=== PATIENT | male | born 1970 | race Caucasian/White ===

== ENCOUNTER → 2020-10-22 08:51 | Outpatient (CLI) | payer OTHER, SELFPAY ==
[2015-03-23 12:14] VITALS: BMI 23.5
[2020-10-25 20:12] LABS: Fats, Neutral Normal (.); Fats, Total Normal (.)
== END ==
PROVIDERS: PCP Family Medicine; Referring Provider Internal Medicine Gastroenterology; Visit Provider Internal Medicine Gastroenterology
DX: R19.7 Diarrhea, unspecified (principal); R63.4 Abnormal weight loss
CPT/HCPCS: 82705

== ENCOUNTER → 2024-10-08 | Outpatient (CLI) | payer OTHER, SELFPAY ==
[2024-10-08 10:39] LABS: Erythrocyte Sedimentation Rate < 1 mm/hr (0-20)
[2024-10-08 10:41] LABS: Absolute Lymphocyte Count 2.68 X10^3/uL (0.83-4.51); Absolute Neutrophil Count 5.7 X10^3/uL (2.0-7.7); Basophil# 0.05 X10^3/uL; Basophil% 0.5 % (0-1); Eosinophil# 0.38 X10^3/uL; Eosinophils% 4.1 % (0-5); Hemoglobin 15.4 g/dL (13.0-16.5); Lymphocyte # 2.68 X10^3/ul (0.83-4.51); Lymphocyte % 28.8 % (19-41); Mean Corp Hgb Conc 33.5 g/dL (32-36); Mean Corpuscular Hgb 31.8 pg (27.0-32.0); Mean Platelet Vol. 9.4 fl (6.2-12.0); Monocyte# 0.48 X10^3/uL; Monocyte% 5.2 % (0-10); NRBC Flagged by Analyzer 0 % (0-5); Neutrophil # 5.67 X10^3/uL (2.7-7.7); Neutrophil % 61.1 % (47-70); Platelet Count 227 K/mm3 (150-450); RBC Distribution Width CV 12.7 % (11.6-14.6); RBC Distribution Width SD 44.6 fl (35.1-43.9); Red Blood Count 4.84 M/mm3 (4.6-6.2); White Blood Count 9.3 K/mm3 (4.4-11.0)
[2024-10-08 10:49] LABS: ALB/GLOB Ratio 1.2 RATIO (0.9-2.4); AST(SGOT) 14 U/L (15-37); Alanine Aminotransfer ALT/SGPT 41 U/L (16-61); Albumin, Serum 3.8 g/dL (3.2-5.0); Alkaline Phosphatase 74 U/L (45-117); Anion Gap 3 (5-15); BUN 14 mg/dL (7-18); BUN/Creat Ratio 14.1 RATIO (10-20); CRP < 2.90 mg/L (0.0-3.0); Calcium,Total 8.9 mg/dL (8.5-10.1); Chloride 106 mmol/L (98-107); Creatinine, Serum 0.99 mg/dL (0.70-1.30); EST Glomerular Filtration Rate 83 mL/min (>60); Est Glom Filt Rate - Afr Amer 101 mL/min (>60); Globulin 3.2 g/dL (2.2-4.2); Glucose 92 mg/dL (74-106); Lipase 54 U/L (13-75); Potassium 4.1 mmol/L (3.5-5.1); Sodium Level 139 mmol/L (136-145)
== END | disposition home or self-care (01) ==
PROVIDERS: PCP Family Medicine; Referring Provider Student in an Organized Health Care Education/Training Program; Visit Provider Student in an Organized Health Care Education/Training Program
DX: R10.9 Unspecified abdominal pain (principal)
CPT/HCPCS: 36415; 80053; 83690; 85025; 85652; 86140

== ENCOUNTER → 2024-10-11 | Outpatient (CLI) | payer OTHER, SELFPAY ==
[2024-10-13 15:08] LABS: Pancreatic Elastase, Fecal > 800 (>200)
[2024-10-14 15:08] LABS: Calprotectin, Stool 13 ug/g (0-120)
== END | disposition home or self-care (01) ==
LOC: LABSPEC 09:37
PROVIDERS: PCP Family Medicine; Referring Provider Student in an Organized Health Care Education/Training Program; Visit Provider Student in an Organized Health Care Education/Training Program
DX: R10.9 Unspecified abdominal pain (principal); K58.9 Irritable bowel syndrome, unspecified
CPT/HCPCS: 82653; 83630; 83993; 87177; 87209; 87329; 87493

== ENCOUNTER → 2024-11-12 | Outpatient (CLI) | payer OTHER, SELFPAY ==
--- NOTE | 2024-11-12 13:11 | MRI_ITS ---
EXAM: MR ABDOMEN WITHOUT INTRAVENOUS CONTRAST, MRCP PROTOCOL CLINICAL INDICATION: dilated CBD TECHNIQUE: Multiplanar and multisequence MR images of the abdomen without intravenous contrast obtained with MRCP sequence. Three-dimensional post-processing reconstructions were performed. COMPARISON: No relevant prior studies available. FINDINGS: LOWER THORAX: Normal. No pleural effusion. LIVER: Normal. Normal morphology. GALLBLADDER AND BILE DUCTS: Susceptibility artifacts at the mary hepatis related to cholecystectomy clips. Common bile duct measures 7 mm in diameter which is normal for postcholecystectomy patient. PANCREAS: Normal. No focal cystic mass. No pancreatic duct dilation. SPLEEN: Normal. Non-enlarged. ADRENALS: Normal. No nodules. KIDNEYS AND URETERS: Normal. Normal renal size and position. No hydronephrosis. INTRAPERITONEAL SPACE: Normal. No ascites or other fluid collection. VASCULATURE: Normal. Abdominal aorta is non-dilated. LYMPH NODES: No enlarged lymph nodes. MRI/MRCP Abdomen without Contrast IMPRESSION: Normal MRCP for postcholecystectomy patient. Electronically Signed: Austin Mcbride MD at 9:06 EST ,
== END | disposition home or self-care (01) ==
PROVIDERS: PCP Family Medicine; Referring Provider Student in an Organized Health Care Education/Training Program; Visit Provider Student in an Organized Health Care Education/Training Program
DX: K83.8 Other specified diseases of biliary tract (principal); R10.9 Unspecified abdominal pain
CPT/HCPCS: 74181

== ENCOUNTER 2024-12-05 11:21 | Day surgery (SDC) | payer OTHER, SELFPAY ==
[2024-12-05] VITALS (9 sets, daily range): BP systolic 97–122; BP diastolic 72–98; PULSE 61–67; RESP 16; TEMP 36.3–36.9; O2SAT 92–100; BMI 21.7
--- NOTE | 2024-12-05 11:53 | HP.PCM_ITS ---
HPI - General General Date of Admission: 12/05/24 Date of Service: 12/05/24 Chief Complaint: diarrhea HPI Narrative Chief Complaint: RUQ pain, diarrhea Details: QUANG SOLOMON, is a 54 M who presents to the office today for establishment with [facility]. Pt has a long hx of GI issues starting in 2000 after cholecystectomy. He has undergone ERCP for choledocholithiasis in 2013. The past couple of months he has started having episodes of severe RUQ pain followed by multiple episodes of loose sticky stool. He also has had daily nausea w/ no vomiting. If he does vomit it will go on for a long time. He has been unable to work due to these symptoms. He recently presented to [facility] for these symptoms and they did not do much for him. He had a CT abdomen/pelvis which was normal. HE does not remember his last scopes but it was at least 5 years ago. [facility] Medical History Wears glasses Depression Anxiety Arthritis Back pain Injury of back Migraine headache Injury of head and neck History of ulceration History of GI bleed History of IBS History of diverticulitis Gastric reflux Former smoker Home Medications ?Medication ?Instructions ?Recorded ?Last Taken ?Type dicyclomine 20 mg tablet 20 mg PO BID PRN abdominal pain 12/03/24 Unknown History Allergy/AdvReac Type Severity Reaction Status Date / Time hydromorphone HCl (From Allergy Other Verified 12/05/24 11:42 Dilaudid) codeine AdvReac Vomiting Verified 12/05/24 11:42 Surgical History Hx of facial fracture repair Hx of arthroscopy of shoulder History of ERCP History of ERCP History of laparoscopic cholecystectomy Social History Smoking Status: Former smoker Electronic Cigarette Use: not used alcohol intake: former substance use type: marijuana ROS Constitutional Constitutional: Denies fatigue, fever(s), poor appetite, weight gain or weight loss Gastrointestinal Gastrointestinal: Denies belching, bloating, change in bowel habits, change in stool character, chewing difficulty, coffee ground emesis, constipation, cramping, diarrhea, dyspepsia, dysphagia, early satiety, excessive flatus, fecal incontinence, heartburn, hematemesis, hematochezia, hemorrhoids, loose stools, melena, nausea, odynophagia, rectal bleeding, tenesmus, vomiting or weight changes Vital Signs Vital Signs Vital Signs: 12/05/24 11:44 12/05/24 11:44 Temperature 98.5 F Temperature Source Temporal Pulse Rate 67 Respiratory Rate 16 Respiratory Pattern Normal Blood Pressure 122/98 H Blood Pressure Mean 106 Blood Pressure Source Monitor Blood Pressure Position Semi-Fowlers Blood Pressure Location Right Arm Pulse Ox 100 Oxygen Delivery Method Room Air Weight Weight: 134 lb 7.712 oz Body Mass Index (BMI) 21.7 Physical Exam Const alert, oriented x3, no apparent distress and healthy appearing General Appearance: cooperative GI normal to inspection, nondistended, normoactive bowel sounds, soft to palpation, non-tender and non-distended Percussion: normal to percussion Rectal Exam: deferred Assessment & Plan Assessment/Plan (1) Abdominal pain: (2) Diarrhea: PLAN: Plan Chief Complaint: RUQ pain, diarrhea Details: QUANG SOLOMON, is a 54 M who presents to the office today for establishment with [facility]. Pt has a long hx of GI issues starting in 2000 after cholecystectomy. He has undergone ERCP for choledocholithiasis in 2013. The past couple of months he has started having episodes of severe RUQ pain followed by multiple episodes of loose sticky stool. He also has had daily nausea w/ no vomiting. If he does vomit it will go on for a long time. He has been unable to work due to these symptoms. He recently presented to [facility] for these symptoms and they did not do much for him. He had a CT abdomen/pelvis which was normal. HE does not remember his last scopes but it was at least [address] abdomen/pelvis 09.05.24 w/o pertinent abnormalities US gallbladder 09.05.24; CBD dilation 7.1 mm ROS Const Constitutional: Positive for fatigue, headache(s) and weight change; No fever(s) ENT ENT: Positive for headache(s); No difficulty swallowing Gastro GI: Positive for abdominal pain, bloating, change in bowel habits, constipation, diarrhea, heartburn, excessive flatus and nausea/dyspepsia; No belching, change in stool character, coffee ground emesis, cramping, difficulty swallowing, feeling full early, incontinent of stools, Vomiting blood/hematemesis, Blood in stool, loose stools, Black,tarry stools, pain with swallowing, vomiting or other Musc Musculoskeletal: Positive for joint pain, back pain, muscle cramps, muscle weakness, stiffness and restless legs Skin Skin: Positive for dry skin; No yellowing of the eye or itchy eyes GI Assessment and Plan Assessment and Plan (1) Abdominal pain: Status: Acute (2) Common bile duct dilatation: Status: Acute Plan: This is a 54 yo male pt who is here today for RUQ pain, n/v and loose stools. He is s/p cholecystectomy 2000 and ERCP 2013. He has episodes of RUQ pain that sounds like SOD. I will order blood work with CBC, CMP, lipase, CRP and ESR. I will also order stool testing for EPI, inflammation or infection. He will undergo both upper and lower endoscopy as last one was over 5 years ago. He will also have an MRCP to look at the bile ducts. In the meantime he will take dicyclomine for abdominal cramping 20 mg BID PRN. -Blood work and stool tests -MRCP -EGD and colonoscopy -Dicyclomine 20 mg BID PRN - Orders: Orders Ova and Parasites 8623 Today K58.9 - Irritable bowel syndrome, unspecified, R10.9 - Unspecified abdominal pain Pancreatic Elastase, Fecal Today R10.9 - Unspecified abdominal pain Stool Lactoferrin/WBC Today K58.9 - Irritable bowel syndrome, unspecified, R10.9 - Unspecified abdominal pain Giardia Lamblia, Stool EIA Today R10.9 - Unspecified abdominal pain Calprotectin, Stool Today R10.9 - Unspecified abdominal pain CDIFF (PCR) Today R10.9 - Unspecified abdominal pain Erythrocyte Sed Rate Today R10.9 - Unspecified abdominal pain CRP Today R10.9 - Unspecified abdominal pain CBC W/Diff, Automated Today R10.9 - Unspecified abdominal pain Comprehensive Metabolic Profil Today R10.9 - Unspecified abdominal pain Lipase Today R10.9 - Unspecified abdominal pain MRCP Abdomen without Contrast Today K83.8 - Other specified diseases of biliary tract, R10.9 - Unspecified abdominal pain Medications: New dicyclomine 20 mg PO BID 90 tabs 3RF Coding Level of Care Code Off vis,new,level 5
--- NOTE | 2024-12-05 12:30 | EGD_PTH ---
PATIENT: QUANG SOLOMON LOC: EN U#:[id number] AGE/SX: 54/M ROOM: RE12/05/[address]: Dr. Octavio Thorne DO : 1970 BED: DIS: 12/05/2024 SPEC #: [id number] RECD: 12/05/24 13:49 STATUS: TAAMRA TERRA #: [id number] CARMELITA: 12/05/24 12:[address]: Octavio Thorne DEPT: SURGICAL PATHOLOGY RECD BY: Gabriella Frias ENTERED: 12/05/24 14:23 SP TYPE: EGD BIOPSY RITA DR: Dr. Lloyd Leyva MD Tissues: A - Duodenum, NOS B - Ileum, NOS C - COLON BIOPSY D - Transverse colon E - Sigmoid colon biopsy Procedures: Surgery Specimen Level IV HEADER OPERATION: Colonoscopy, EGD with biopsy PRE-OP DIAGNOSIS: Abdominal pain, common bile duct dilatation TISSUE SUBMITTED: A- Duodenum biopsy, B- Terminal ileum biopsy, C- Random colonic biopsy, D- Transverse polyp biopsy, E- Sigmoid polyp biopsy MICROSCOPIC DIAGNOSIS A. Duodenum, biopsy: Fragments of duodenal mucosa, no pathologic diagnosis. B. Terminal ileum, biopsy: Fragments of small intestinal mucosa, no pathologic diagnosis. C. Colon, random biopsy: Fragments of colonic mucosa, no pathologic diagnosis. D. Transverse colon polyp, biopsy: Tubular adenoma. E. Sigmoid polyp, biopsy: Hyperplastic polyp. 12/08/2024 MICROSCOPIC DESCRIPTION Slides are reviewed. GROSS DESCRIPTION A. Received in fixative is one container labeled with the patient's name and designated Duodenum biopsy. The specimen consists of multiple irregular fragments of light nicole soft tissue that in aggregate measure 1.5 x 0.5 x 0.2 cm. The specimen is totally submitted in one cassette. B. Received in fixative is one container labeled with the patient's name and designated Terminal ileum biopsy. The specimen consists of two irregular fragments of light nicole soft tissue that in aggregate measure 1.0 x 0.3 x 0.2 cm. The specimen is totally submitted in one cassette. C. Received in fixative is one container labeled with the patient's name and designated Random colonic biopsy. The specimen consists of multiple irregular fragments of light nicole soft tissue that in aggregate measure 2.5 x 0.5 x 0.2 cm. The specimen is totally submitted in one cassette. D. Received in fixative is one container labeled with the patient's name and designated Transverse polyp biopsy. The specimen consists of two irregular fragments of light nicole soft tissue that measure in aggregate 0.6 x 0.3 x 0.1 cm. The specimen is totally submitted in one cassette. E. Received in fixative is one container labeled with the patient's name and designated Sigmoid polyp biopsy. The specimen consists of one irregular fragment of light nicole soft tissue that measures 0.4 x 0.3 x 0.1 cm. The specimen is totally submitted in one cassette. 12/05/2024 TC:1 CPT: 25013q4
--- NOTE | 2024-12-05 12:31 | PCM.PRE.AN2 ---
ASA Classification* ASA Classification ASA Classification: 2 Assessment & Plan Anesthesia* Anesthesia Assessment Anesthesia Assessment: Discussed sedation and/or anesthesia options, risks, benefits, and alternatives with patient/parents/legal guardian/POA. Questions invited. The patient/parents/legal guardian/POA seems to understand and agrees to proceed with anesthesia plan. Reviewed the physical assessment, medical history, allergy history and patient home medications list prior to surgery/procedure/anesthetic and documented any changes. Performed airway and anesthesia risk assessments. Anesthesia Type Anesthesia Type: MAC History Source History Obtained from:: Patient and Chart Anesthesia Focused Assessment* Temperature: 98.5 F Pulse Rate: 67 Blood Pressure: 122/98 Respiratory Rate: 16 Pulse Ox: 100 Oxygen Delivery Method: Room Air Airway Assessment Mouth opens: 2 cm Mallampati Score: I Teeth Condition: Intact Neck Range of motion (ROM): Full ROM Focused Labs Anesthesia Preop lab: CBC WBC 9.3 K/mm3 (4.4-11.0) 10/08/24 09:32 RBC 4.84 M/mm3 (4.6-6.2) 10/08/24 09:32 Hgb 15.4 g/dL (13.0-16.5) 10/08/24 09:32 Hct 46.0 % (40-54) 10/08/24 09:32 Plt Count 227 K/mm3 (150-450) 10/08/24 09:32 CHEMISTRY Potassium 4.1 mmol/L (3.5-5.1) 10/08/24 09:32 Sodium 139 mmol/L (136-145) 10/08/24 09:32 BUN 14 mg/dL (7-18) 10/08/24 09:32 Creatinine 0.99 mg/dL (0.70-1.30) 10/08/24 09:32 Glucose 92 mg/dL (74-106) 10/08/24 09:32 COAG Pre-Assessment Diagnosis/Proposed Procedure Planned Operative Procedure(s): EGD Anesthesia History Anesthesia History - superintendent logging: Anesthesia History - superintendent logging Hx Hospitalization Yes 12/03/24 14:28 Any Problems With Anesthesia Yes: GETS MEAN & AGITATED 12/03/24 14:28 WITH ANESTHESIA, HARD TO HANDLE PER PT Cholinesterase deficiency No 12/03/24 14:28 You/Your Family Experience No 12/03/24 14:28 fever (hyperthermia) with Relationship Recent Exposure to Contagious No 12/05/24 11:44 Disease Does patient have nerve No 12/03/24 14:28 stimulator Patient instructed to have device shut off --Does patient have Pacemaker No 12/05/24 11:44 or ICD? When Was Last Pacemaker Check QUESTION #4 FULL TEXT: You/Your Family Experience fever (hyperthermia) with Anesthesia Last Oral Intake Last Oral intake: Last Oral Intake NPO since 07:30 12/05/24 11:44 Meds taken in AM with sips of No 12/05/24 11:44 water? Meds patient instructed to take am of surgery Any additional information?: Yes NPO since: 08:00 (Patient finished prep at 8 AM.) PONV PONV - superintendent logging: PONV - superintendent logging Female No 12/03/24 14:28 HX of Motion Sickness No 12/03/24 14:28 HX of N/V After Surgery No 12/03/24 14:28 Non-Smoker Yes 12/03/24 14:28 Duration of Surgery greater No 12/03/24 14:28 than 60 minutes Number of Risk Factors 1 12/03/24 14:28 PONV Score Low Risk 12/03/24 14:28 Height & Weight Height & Weight: Anesthesia: Height & Weight Height 5 ft 6 in 12/05/24 11:44 Weight: 61 kg 12/05/24 11:44 Body Mass Index (BMI) 21.7 12/05/24 11:44 Respiratory Assessment Respiratory Assessment - superintendent logging: Respiratory Tract Infection Hx - superintendent logging Hx Respiratory Tract Infection No 12/03/24 14:28 STOP Sleep Apnea STOP Sleep Apnea - superintendent logging: STOP Sleep Apnea - superintendent logging Hx Hypertension No 12/03/24 14:28 Hx Sleep Apnea No 12/03/24 14:28 CPAP No 12/03/24 14:28 BIPAP No 12/03/24 14:28 Do you snore loudly (louder No 12/03/24 14:28 than talking or can be heard Do you often feel tired/ No 12/03/24 14:28 fatigued/ sleepy during daytime? Has anyone observed you stop No 12/03/24 14:28 breathing during sleep? STOP Results Negative 12/03/24 14:28 QUESTION #5 FULL TEXT : Do you snore loudly (louder than talking or can be heard through closed doors)? 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 Specify any problems Hx of Preganancy in last 3 N/A 12/03/24 14:28 Months Nurse Filling Out Transfusion VCHRISTIN 12/03/24 14:28 & Questions: Date: 12/03/24 12/03/24 14:28 Time: 14:29 12/03/24 14:28 Patient unable to answer at this time (ie. confused, unrespo /Reproduction History /Reproductive History - superintendent logging: /Reproductive Hx- superintendent logging Hx Now Gestational Age (in weeks): EDC: Hx Hx Para Hx Section SAB PFSH Medical History Wears glasses Depression Anxiety Arthritis Back pain Injury of back Migraine headache Injury of head and neck History of ulceration History of GI bleed History of IBS History of diverticulitis Gastric reflux Former smoker Home Medications ?Medication ?Instructions ?Recorded ?Last Taken ?Type dicyclomine 20 mg tablet 20 mg PO BID PRN abdominal pain 12/03/24 Unknown History Allergy/AdvReac Type Severity Reaction Status Date / Time hydromorphone HCl (From Allergy Other Verified 12/05/24 11:42 Dilaudid) codeine AdvReac Vomiting Verified 12/05/24 11:42 Surgical History Hx of facial fracture repair Hx of arthroscopy of shoulder History of ERCP History of ERCP History of laparoscopic cholecystectomy Social History Smoking Status: Former smoker Electronic Cigarette Use: not used alcohol intake: former substance use type: marijuana Review of Systems (Anesthesia) ROS Narrative System reviewed and no additional complaints, except as documented.
--- NOTE | 2024-12-05 13:22 | OP.EGD_ITS ---
Patient Name: Faisal Ang Procedure Date: 12/05/2024 12:31 PM Date of : 1970 Age: 54 Procedure: Upper GI endoscopy Indications: Epigastric abdominal pain, Functional Dyspepsia Providers: Octavio Thorne DO Referring MD: Lloyd Leyva Md Medicines: Monitored Anesthesia Care Patient Profile: This is a 54 year old male. Refer to note in patient chart for documentation of history and physical. Patient has symptoms of chronic abdominal cramping, chronic right upper quadrant abdominal pain and chronic dyspepsia. Complications: No immediate complications. Procedure: Pre-Anesthesia Assessment: - Prior to the procedure, a History and Physical was performed, and patient medications and allergies were reviewed. The patient is competent. The risks and benefits of the procedure and the sedation options and risks were discussed with the patient. All questions were answered and informed consent was obtained. Patient identification and proposed procedure were verified by the physician in the pre-procedure area. Mental Status Examination: alert and oriented. Airway Examination: normal oropharyngeal airway and neck mobility. Respiratory Examination: clear to auscultation. CV Examination: normal. Prophylactic Antibiotics: The patient does not require prophylactic antibiotics. Prior Anticoagulants: The patient has taken no anticoagulant or antiplatelet agents except for NSAID medication. ASA Grade Assessment: II - A patient with mild systemic disease. After reviewing the risks and benefits, the patient was deemed in satisfactory condition to undergo the procedure. The anesthesia plan was to use monitored anesthesia care (MAC). Immediately prior to administration of medications, the patient was re-assessed for adequacy to receive sedatives. The heart rate, respiratory rate, oxygen saturations, blood pressure, adequacy of pulmonary ventilation, and response to care were monitored throughout the procedure. The physical status of the patient was re-assessed after the procedure. After obtaining informed consent, the endoscope was passed under direct vision. Throughout the procedure, the patient's blood pressure, pulse, and oxygen saturations were monitored continuously. The pediatric colonoscope was introduced through the mouth, and advanced to the second part of duodenum. The upper GI endoscopy was accomplished without difficulty. The patient tolerated the procedure well. Scope In: 12:50:07 PM Scope Out: 12:54:55 PM Total Procedure Duration Time 0 hours 4 minutes 48 seconds Findings: The examined esophagus was normal. A small hiatal hernia was present. No other significant abnormalities were identified in a careful examination of the stomach, except for a lot of bile acid. Patchy mild inflammation characterized by erythema and friability was found in the duodenal bulb and in the first portion of the duodenum. Biopsies were taken with a cold forceps for histology. Verification of patient identification for the specimen was done. Estimated blood loss was minimal. Impression: - Normal esophagus. - Small hiatal hernia with excess acid in the stomach - Chronic duodenitis. Biopsied. Recommendation: - Discharge patient to home. - Resume previous diet. - Continue present medications. - Await pathology results. - check gastric level Procedure Code(s): --- Professional --- 16114, Esophagogastroduodenoscopy, flexible, transoral; with biopsy, single or multiple CPT copyright 2021 [employer]. All rights reserved. The codes documented in this report are preliminary and upon medical biller/coder review may be revised to meet current compliance requirements. Octavio Thorne DO 12/05/2024 1:21:43 PM This report has been signed electronically. Number of Addenda: 0 Note Initiated On: 12/05/2024 12:31 PM
--- NOTE | 2024-12-05 13:22 | OP.CCLET_ITS ---
12/05/2024 Lloyd Leyva Md Re : Upper GI endoscopy procedure for Faisal Mejia Gordon This procedure was performed on Thursday, December 05, 2024. My impressions and recommendations are as follows: Impressions : - Normal esophagus. - Small hiatal hernia with excess acid in the stomach - Chronic duodenitis. Biopsied. Recommendations : - Discharge patient to home. - Resume previous diet. - Continue present medications. - Await pathology results. - check gastric level My findings are described in the full procedure note, which is enclosed. If I can be of further assistance, please feel free to contact me at . Sincerely, Octavio Thorne, 12/05/2024 1:21:43 PM This report has been signed electronically.
--- NOTE | 2024-12-05 13:25 | PCM.POST.ANE ---
Anesthesia: Postop Eval I Current Vital Signs Temperature: 97.6 F Pulse Rate: 64 Blood Pressure: 102/79 Respiratory Rate: 16 Pulse Ox: 94 Oxygen Delivery Method: Room Air Assessment Airway patent: Yes Spontaneous unlabored respirations: Yes Mental status: Asleep nausea: No Vomiting: No Anesthesia Complication: No Fluid Hydration Crystalloid volume administer (ml): 60 Total IV fluid infused: 60 Progress Note Anesthesia document: Postop Eval 1 completed: Yes
--- NOTE | 2024-12-05 13:29 | OP.COLON_ITS ---
Patient Name: Faisal Ang Procedure Date: 12/05/2024 12:55 PM Date of : 1970 Age: 54 Procedure: Colonoscopy Indications: Chronic diarrhea, Clinically significant diarrhea of unexplained origin Providers: Octavio Thorne DO Referring MD: Lloyd Leyva Md Medicines: Monitored Anesthesia Care Patient Profile: This is a 54 year old male. Refer to note in patient chart for documentation of history and physical. Patient has symptoms of chronic abdominal cramping, chronic right upper quadrant abdominal pain and chronic dyspepsia. Last Colonoscopy: date unknown. Unable to locate last colonoscopy report. Complications: No immediate complications. Procedure: Pre-Anesthesia Assessment: - Prior to the procedure, a History and Physical was performed, and patient medications and allergies were reviewed. The patient is competent. The risks and benefits of the procedure and the sedation options and risks were discussed with the patient. All questions were answered and informed consent was obtained. Patient identification and proposed procedure were verified by the physician in the pre-procedure area. Mental Status Examination: alert and oriented. Airway Examination: normal oropharyngeal airway and neck mobility. Respiratory Examination: clear to auscultation. CV Examination: normal. Prophylactic Antibiotics: The patient does not require prophylactic antibiotics. Prior Anticoagulants: The patient has taken no anticoagulant or antiplatelet agents except for NSAID medication. ASA Grade Assessment: II - A patient with mild systemic disease. After reviewing the risks and benefits, the patient was deemed in satisfactory condition to undergo the procedure. The anesthesia plan was to use monitored anesthesia care (MAC). Immediately prior to administration of medications, the patient was re-assessed for adequacy to receive sedatives. The heart rate, respiratory rate, oxygen saturations, blood pressure, adequacy of pulmonary ventilation, and response to care were monitored throughout the procedure. The physical status of the patient was re-assessed after the procedure. After I obtained informed consent, the scope was passed under direct vision. Throughout the procedure, the patient's blood pressure, pulse, and oxygen saturations were monitored continuously. The pediatric colonoscope was introduced through the anus and advanced to the terminal ileum. The colonoscopy was performed without difficulty. The patient tolerated the procedure well. The quality of the bowel preparation was adequate. The terminal ileum, ileocecal valve, appendiceal orifice, and rectum were photographed. Scope In: 12:58:22 PM Scope Withdrawal Time 0 hours 11 minutes 49 seconds Scope Out: 1:15:29 PM Total Procedure Duration Time 0 hours 17 minutes 7 seconds Findings: The perianal and digital rectal examinations were normal. Two sessile polyps were found in the sigmoid colon and transverse colon. These polyps were removed with a cold biopsy forceps. Resection and retrieval were complete. Verification of patient identification for the specimen was done. Estimated blood loss was minimal. Multiple small-mouthed diverticula were found in the recto-sigmoid colon, sigmoid colon and ascending colon. An area of mildly congested mucosa was found in the sigmoid colon, in the descending colon, at the splenic flexure, at the hepatic flexure and in the ascending colon. Biopsies were taken with a cold forceps for histology. Verification of patient identification for the specimen was done. Estimated blood loss was minimal. A patchy area of the terminal ileum was congested. Biopsies were taken with a cold forceps for histology. Verification of patient identification for the specimen was done. Estimated blood loss was minimal. Impression: - Two polyps in the sigmoid colon and in the transverse colon, removed with a cold biopsy forceps. Resected and retrieved. - Diverticulosis in the recto-sigmoid colon, in the sigmoid colon and in the ascending colon. - Congested mucosa in the sigmoid colon, in the descending colon, at the splenic flexure, at the hepatic flexure and in the ascending colon. Biopsied. - Congested mucosa in the terminal ileum. Biopsied. Recommendation: - Discharge patient to home. - Resume previous diet. - Continue present medications. - Repeat colonoscopy in 5 years for surveillance. Procedure Code(s): --- Professional --- 31222, Colonoscopy, flexible; with biopsy, single or multiple CPT copyright 2021 [employer]. All rights reserved. The codes documented in this report are preliminary and upon hims coder review may be revised to meet current compliance requirements. Octavio Thorne DO 12/05/2024 1:29:10 PM This report has been signed electronically. Number of Addenda: 0 Note Initiated On: 12/05/2024 12:55 PM
--- NOTE | 2024-12-05 13:29 | OP.CCLET_ITS ---
12/05/2024 Lloyd Leyva Md Re : Colonoscopy procedure for Faisal Mejia Gordon This procedure was performed on Thursday, December 05, 2024. My impressions and recommendations are as follows: Impressions : - Two polyps in the sigmoid colon and in the transverse colon, removed with a cold biopsy forceps. Resected and retrieved. - Diverticulosis in the recto-sigmoid colon, in the sigmoid colon and in the ascending colon. - Congested mucosa in the sigmoid colon, in the descending colon, at the splenic flexure, at the hepatic flexure and in the ascending colon. Biopsied. - Congested mucosa in the terminal ileum. Biopsied. Recommendations : - Discharge patient to home. - Resume previous diet. - Continue present medications. - Repeat colonoscopy in 5 years for surveillance. My findings are described in the full procedure note, which is enclosed. If I can be of further assistance, please feel free to contact me at . Sincerely, Octavio Thorne, 12/05/2024 1:29:10 PM This report has been signed electronically.
--- NOTE | 2024-12-05 16:05 | PCM.POSTANE2 ---
Anesthesia Postop Eval I Sum Postop Eval Completion status Anesthesia document: Postop Eval 1 completed: Yes Anesthesia Postop Eval I Summary Anesthesia Postop Eval I Summary: Anesthesia Postop Eval I: Assessment Summary Airway patent Yes 12/05/24 13:27 [email or web address] Spontaneous unlabored Yes 12/05/24 13:27 [email or web address] respirations Mental status Asleep 12/05/24 13:27 [email or web address] nausea No 12/05/24 13:27 [email or web address] Vomiting No 12/05/24 13:27 [email or web address] Anesthesia Postop Eval I: Fluid Summary Crystalloid volume administer 60 12/05/24 13:27 [email or web address] (ml) Colloids volume administered ( ml) Blood Product volume administered (ml) Total IV fluid infused 60 12/05/24 13:27 [email or web address] Anesthesia Postop Eval I: Summary Notes Anesthesia Complication No 12/05/24 13:27 [email or web address] Anesthesia Complication Comment: Post-operative progress note Anesthesia: Postop Eval II Evaluation Mental status: Awake and Calm Pain Level: 0 nausea: No Vomiting: No Complications Anesthesia Complication: No
== END 2024-12-05 14:28 | disposition home or self-care (01) ==
LOC: EN 11:23 → AC 11:25
PROVIDERS: PCP Family Medicine; Referring Provider Family Medicine; Visit Provider Internal Medicine Gastroenterology
PROC: 0DJD8ZZ Inspection of Lower Intestinal Tract, Via Natural or Artificial Opening Endoscopic (ICD-10-PCS; CPT 45378; principal; 2024-12-05 12:25)
DX: D12.3 Benign neoplasm of transverse colon (principal); K44.9 Diaphragmatic hernia without obstruction or gangrene; K57.30 Diverticulosis of large intestine without perforation or abscess without bleeding; K29.80 Duodenitis without bleeding; Z87.891 Personal history of nicotine dependence; Z90.49 Acquired absence of other specified parts of digestive tract; K21.9 Gastro-esophageal reflux disease without esophagitis; K58.9 Irritable bowel syndrome, unspecified
CPT/HCPCS: 45380; 43239; 88305; A4216; J2405